=== PATIENT | female | born 2000 | race African-American/Black ===

== ENCOUNTER 2022-04-07 15:31 | Emergency (ER) | payer OTHER ==
[~2022-04-07] VITALS: Ht 152.4 cm; Wt 63.5 kg
== END 2022-04-07 16:18 | disposition home or self-care (01) ==
LOC: FSED 15:47
DX: S61.210A Laceration without foreign body of right index finger without damage to nail, initial encounter (principal); W26.8XXA Contact with other sharp object(s), not elsewhere classified, initial encounter; Y92.89 Other specified places as the place of occurrence of the external cause
CPT/HCPCS: 99283

== ENCOUNTER 2023-05-31 17:42 | Emergency (ER) | payer OTHER ==
[~2023-05-31] VITALS: Ht 154.9 cm; Wt 66.7 kg
[2023-05-31 17:42] VITALS: O2SAT 100
[~2023-05-31 17:42] MED LIST: KEPPRA750 MG PO; LAMICTAL25 MG; ONDANSETRON ODT4 MG PO
[2023-05-31] MEDS ORDERED: DIFLUCAN100 MG PO (18:39)
[2023-05-31] MEDS ORDERED: METRONIDAZOLE500 MG PO (18:41)
== END 2023-05-31 18:51 | disposition home or self-care (01) ==
LOC: FSED 17:52
DX: B37.31 Acute candidiasis of vulva and vagina (principal); N76.0 Acute vaginitis; Z72.51 High risk heterosexual behavior; G40.909 Epilepsy, unspecified, not intractable, without status epilepticus
CPT/HCPCS: 81003; 81025; 99283